=== PATIENT | female | born 1960 | race Caucasian/White ===

== ENCOUNTER 2016-11-24 07:53 | Emergency (ER) | payer MEDICAID ==
[~2016-11-24] VITALS: Ht 167.6 cm; Wt 77.1 kg
[~2016-11-24 07:53] MED LIST: ASPI81TA27 PO; Carisoprodol PO; GEMF600T3 PO; Gabapentin PO; LISI10TA6 PO; METF-370 PO; METH4PAK26 PO; NAP500T PO; NITR-39 PO; ONDA4TAB5 PO; RANI-226 PO
[2016-11-24 08:47] LABS: Basophils # (auto) 0 uL; Basophils % (auto) 0.2 % (0.0-2.0); DEFINITIVE VIEW TRANSMISSION; Eosinophils # (auto) 0.1 uL; Eosinophils % (auto) 2.6 % (0.0-7.0); Hematocrit 35.2 % (36.0-46.0); Hemoglobin 11.3 g/dL (12.2-16.2); Lymphocytes # (auto) 1.3 uL; Lymphocytes % (auto) 22.6 % (10.0-50.0); Mean Corpuscular Hemoglobin 23.8 pg (28.0-32.0); Mean Corpuscular Volume 74.3 fL (80.0-100.0); Mean Platelet Volume 8.3 fL (7.4-10.4); Monocytes # (auto) 0.5 uL; Monocytes % (auto) 8.2 % (0.0-12.0); Neutrophils # (auto) 3.7 uL; Neutrophils % (auto) 66.4 % (37.0-80.0); Platelet Count (auto) 330 10^3/uL (140-450); Red Cell Distribution Width 18.3 % (11.6-16.0); White Blood Cell 5.6 10^3/uL (4.4-10.8)
[2016-11-24 08:57] LABS: Anisocytosis Slight; Hypochromia Moderate; Microcytosis Moderate; Platelet Estimate Adequate
[2016-11-24 09:15] LABS: Albumin 3.8 g/dL (3.4-5.0); BUN/Creatinine Ratio 20.5; Bilirubin, Total 0.5 mg/dL (0.2-1.0); Potassium 3.6 mmol/L (3.5-5.1); Total Protein 7.5 g/dL (6.4-8.2)
[2016-11-24] MEDS ORDERED: SODIUM CHLORIDE 0.9% 1,000 ML IV ONE (09:37)
[2016-11-24] MEDS ORDERED: ONDANSETRON HCL 4 MG/2 ML VIAL IV ONE (09:45)
[2016-11-24 10:45] VITALS: BP 124/58
== END 2016-11-24 12:23 | disposition home or self-care (01) ==
LOC: EDBD 07:53 → ER 07:53 → EDUNIT# 07:53 → ER 12:23
DX: E86.0 Dehydration (principal); E11.9 Type 2 diabetes mellitus without complications; E78.5 Hyperlipidemia, unspecified; I10 Essential (primary) hypertension; R51 Headache; Z86.73 Personal history of transient ischemic attack (TIA), and cerebral infarction without residual deficits; Z79.899 Other long term (current) drug therapy; Z79.82 Long term (current) use of aspirin
CPT/HCPCS: 36415; 70450; 80053; 85025; 96361; 96374; 99285; J2405; J7030

== ENCOUNTER 2020-12-11 09:43 | Observation (INO) | payer BC, MEDICAID ==
[~2020-12-11] VITALS: Ht 162.6 cm; Wt 77.3 kg
[~2020-12-11 09:43] MED LIST changes: +ASPI-543 PO; -ASPI81TA27 PO; +GEMF-19 PO; -GEMF600T3 PO; +LISI-716 PO; -LISI10TA6 PO; +ONDA-144 PO; -ONDA4TAB5 PO
[2020-12-11 10:31] LABS: Basophils # (auto) 0 10 ^3/uL (0-0.2); Basophils % (auto) 0.4 % (0.0-2.0); Eosinophils # (auto) 0.1 10 ^3/uL (0-0.8); Lymphocytes # (auto) 1.4 10 ^3/uL (0.4-5.4); Monocytes # (auto) 0.4 10 ^3/uL (0-1.3); Monocytes % (auto) 6.1 % (0.0-12.0); Neutrophils # (auto) 4.2 10 ^3/uL (1.6-8.6)
[2020-12-11 10:32] LABS: Eosinophils % (auto) 1.3 % (0.0-7.0); Hemoglobin 12.4 g/dL (12.2-16.2); Mean Corpuscular Hemoglobin 24.2 pg (28.0-32.0); Mean Corpuscular Hgb Conc. 33.4 g/dL (32.0-36.0); Mean Corpuscular Volume 72.5 fL (80.0-100.0); Neutrophils % (auto) 69.2 % (37.0-80.0); Red Blood Cells 5.11 10^6/uL (4.0-5.20); Red Cell Distribution Width 17.8 % (11.8-14.3)
[2020-12-11 10:43] LABS: Albumin 3.3 g/dL (3.4-5.0); Anion Gap 18 (5-15); Blood Urea Nitrogen 15 mg/dL (7-18); Carbon Dioxide 18 mmol/L (21-32); Chloride 94 mmol/L (98-107); Potassium 4.4 mmol/L (3.5-5.1); Sodium 130 mmol/L (136-145)
[2020-12-11 10:49] LABS: Alanine Aminotransferase 36 U/L (13-56); Alkaline Phosphatase 106 U/L (45-117); Aspartate Aminotransferase 31 U/L (15-37); BUN/Creatinine Ratio 22.1; Bilirubin, Total 0.6 mg/dL (0.2-1.0); GFR African American 114 mL/min; GFR Non-African American 94 mL/min; Total Protein 7.7 g/dL (6.4-8.2)
[2020-12-11 10:54] LABS: Glucose 462 mg/dL (74-106)
[2020-12-11] MEDS ORDERED: SODIUM CHLORIDE 0.9% 1,000 ML IV ONE ×2 (11:30→16:30)
[2020-12-11 12:04] LABS: Urine Bacteria MOD /hpf (None Seen); Urine Blood Negative /uL (Negative); Urine Mucus FEW (None Seen); Urine Specific Gravity 1.031 (1.001-1.035); Urine WBC 23 /hpf (0 - 5)
[2020-12-11] MEDS ORDERED: ACETAMINOPHEN 500 MG TAB PO ONE (13:45)
[2020-12-11 14:10] LABS: INR 0.93 (0.9-1.15); Partial Thromboplastin Time 23.9 sec (23.0-31.2)
[2020-12-11] MEDS ORDERED: INSULIN LANTUS (GLARGINE) 1 /0.01ml (100units/ml) SC ONE (15:45)
[2020-12-11] MEDS ORDERED: cefTRIAXone 1GM/50ML D5W 50 ML IV ONE (16:00)
[2020-12-11] MEDS ORDERED: DEXTROSE (50%) 50ML SYRG IV PRN (16:30)
[2020-12-11] MEDS ORDERED: NITROGLYCERIN 0.4 MG SL TAB SL PRN (16:30)
[2020-12-11] MEDS ORDERED: hydrALAZINE HCL 20 MG/ML VL IV PRN (16:30)
[2020-12-11] MEDS ORDERED: MORPHINE SULFATE INJECTION 2 MG/ML SYRG IV PRN (16:30)
[2020-12-11] MEDS: ACCU-CHEK COMFORT CURVE STRIP VI SCH ×2 (17:00→22:14)
[2020-12-11 17:45] LABS: BUN/Creatinine Ratio 20.3; Calcium 8.3 mg/dL (8.5-10.1)
[2020-12-11] MEDS: InsuLIN REG 1unit/0.01ml Soln (100units/ml) SC SCH ×2 (18:18→22:41)
[2020-12-11] MEDS ORDERED: LORazepam 2MG/ML-1ML VIAL IV PRN (18:45)
[2020-12-11 19:00] VITALS: BP 150/73
[2020-12-11 19:51] LABS: Cholesterol 324 mg/dL (< 200)
[2020-12-11 19:53] LABS: HDL Cholesterol 43 mg/dL (40-59); Triglycerides 863 mg/dL (< 150)
[2020-12-11 22:00] VITALS: BP 150/73
[2020-12-11] MEDS ORDERED: ATORVASTATIN 20 MG TAB PO SCH (22:00)
[2020-12-11] MEDS ORDERED: HYDROcodone-ACET 5/325MG TAB PO PRN (22:15)
[2020-12-12] MEDS ORDERED: ATOR-47 PO (00:46)
[2020-12-12] MEDS ORDERED: HYDR-4795 PO (00:49)
[2020-12-12] MEDS ORDERED: LEVO50TA7 PO (00:49)
[2020-12-12] MEDS ORDERED: INSUINJ18 SC (00:55)
[2020-12-12] MEDS ORDERED: INSLANTI SC (00:55)
[2020-12-12] MEDS ORDERED: SEMA2INJ SC (00:55)
[2020-12-12 05:00] VITALS: BP 128/63
[2020-12-12] MEDS: InsuLIN REG 1unit/0.01ml Soln (100units/ml) SC SCH ×4 (06:27→21:38)
[2020-12-12] MEDS: ACCU-CHEK COMFORT CURVE STRIP VI SCH ×4 (06:28→21:52)
[2020-12-12 07:11] LABS: Basophils # (auto) 0 10 ^3/uL (0-0.2); Basophils % (auto) 0.8 % (0.0-2.0); Eosinophils # (auto) 0.1 10 ^3/uL (0-0.8)
[2020-12-12 07:13] LABS: Eosinophils % (auto) 2.5 % (0.0-7.0); Hematocrit 35.4 % (36.0-46.0); Hemoglobin 11.6 g/dL (12.2-16.2); Lymphocytes # (auto) 1.7 10 ^3/uL (0.4-5.4); Lymphocytes % (auto) 31.8 % (10.0-50.0); Mean Corpuscular Hemoglobin 24.2 pg (28.0-32.0); Mean Corpuscular Hgb Conc. 32.7 g/dL (32.0-36.0); Mean Corpuscular Volume 73.9 fL (80.0-100.0); Monocytes # (auto) 0.4 10 ^3/uL (0-1.3); Monocytes % (auto) 7.5 % (0.0-12.0); Neutrophils % (auto) 57.4 % (37.0-80.0); Red Blood Cells 4.79 10^6/uL (4.0-5.20); Red Cell Distribution Width 18.1 % (11.8-14.3); White Blood Cell 5.2 10^3/uL (4.4-10.8)
[2020-12-12 07:28] LABS: BUN/Creatinine Ratio 25.8; Calcium 8.8 mg/dL (8.5-10.1)
[2020-12-12 08:01] VITALS: BP 132/70
[2020-12-12 08:38] VITALS: BP 132/70
[2020-12-12] MEDS: ASPirin 81 mg TAB PO SCH (08:56)
[2020-12-12] MEDS: cefTRIAXone 1GM/50ML D5W 50 ML IV SCH (08:56)
[2020-12-12] MEDS ORDERED: HYDROcodone-ACET 7.5/325MG TAB PO PRN (09:15)
[2020-12-12] MEDS ORDERED: NAPROXEN 500 MG TAB PO PRN (09:15)
[2020-12-12] MEDS ORDERED: ACETAMINOPHEN 325 MG TAB PO PRN (09:15)
[2020-12-12] MEDS ORDERED: ONDANSETRON ODT 4 MG TAB PO PRN (09:15)
[2020-12-12] MEDS: CARISOPRODOL 350 MG TAB PO SCH ×2 (09:34→17:49)
[2020-12-12] MEDS: GEMFIBROZIL 600 MG TAB PO SCH (09:35)
[2020-12-12] MEDS: FAMOTIDINE 20 MG TAB PO SCH (09:35)
[2020-12-12] MEDS: metFORMIN HYDROCHLORIDE 500 MG TAB PO SCH ×2 (09:43→17:49)
[2020-12-12] MEDS ORDERED: LISINOPRIL 10 MG TAB PO SCH (10:00)
[2020-12-12] MEDS: GABAPENTIN 100 MG CAP PO SCH ×2 (12:19→21:36)
[2020-12-12 13:00] VITALS: BP 143/72
[2020-12-12 22:00] VITALS: BP 119/66
[2020-12-12] MEDS ORDERED: ATORVASTATIN 20 MG TAB PO SCH (22:00)
[2020-12-12] MEDS ORDERED: INSULIN LANTUS (GLARGINE) 1 /0.01ml (100units/ml) SC SCH (22:00)
[2020-12-13] MEDS: CARISOPRODOL 350 MG TAB PO SCH ×3 (00:59→17:07)
[2020-12-13 05:00] VITALS: BP 134/63
[2020-12-13 05:51] LABS: Basophils # (auto) 0 10 ^3/uL (0-0.2); Eosinophils # (auto) 0.2 10 ^3/uL (0-0.8); Monocytes # (auto) 0.4 10 ^3/uL (0-1.3); White Blood Cell 5.3 10^3/uL (4.4-10.8)
[2020-12-13 05:54] LABS: Basophils % (auto) 0.5 % (0.0-2.0); Eosinophils % (auto) 3.7 % (0.0-7.0); Hematocrit 33.9 % (36.0-46.0); Hemoglobin 11.3 g/dL (12.2-16.2); Lymphocytes # (auto) 1.9 10 ^3/uL (0.4-5.4); Lymphocytes % (auto) 36.4 % (10.0-50.0); Mean Corpuscular Hemoglobin 24.1 pg (28.0-32.0); Mean Corpuscular Hgb Conc. 33.2 g/dL (32.0-36.0); Mean Corpuscular Volume 72.8 fL (80.0-100.0); Monocytes % (auto) 7.1 % (0.0-12.0); Neutrophils # (auto) 2.8 10 ^3/uL (1.6-8.6); Neutrophils % (auto) 52.3 % (37.0-80.0); Red Blood Cells 4.66 10^6/uL (4.0-5.20); Red Cell Distribution Width 18.8 % (11.8-14.3)
[2020-12-13 06:14] LABS: Potassium 3.6 mmol/L (3.5-5.1)
[2020-12-13 06:18] LABS: BUN/Creatinine Ratio 32.7; Calcium 8.5 mg/dL (8.5-10.1)
[2020-12-13] MEDS: ACCU-CHEK COMFORT CURVE STRIP VI SCH ×3 (06:56→17:04)
[2020-12-13] MEDS: GABAPENTIN 100 MG CAP PO SCH ×2 (06:56→16:19)
[2020-12-13] MEDS ORDERED: LEVOTHYROXINE SODIUM 50 MCG TAB PO SCH (07:00)
[2020-12-13] MEDS: InsuLIN REG 1unit/0.01ml Soln (100units/ml) SC SCH ×3 (07:02→17:06)
[2020-12-13] MEDS: metFORMIN HYDROCHLORIDE 500 MG TAB PO SCH ×2 (08:36→17:05)
[2020-12-13 09:00] VITALS: BP 133/75
[2020-12-13] MEDS ORDERED: LORazepam 2MG/ML-1ML VIAL IV ONE (09:30)
[2020-12-13] MEDS: ASPirin 81 mg TAB PO SCH (10:17)
[2020-12-13] MEDS: FAMOTIDINE 20 MG TAB PO SCH (10:18)
[2020-12-13] MEDS: GEMFIBROZIL 600 MG TAB PO SCH (10:18)
[2020-12-13] MEDS: cefTRIAXone 1GM/50ML D5W 50 ML IV SCH (10:19)
[2020-12-13 13:00] VITALS: BP 128/70
[2020-12-13 16:54] VITALS: BP 124/69
[2020-12-13] MEDS ORDERED: APIXABAN 5 MG TAB PO SCH (22:00)
== END 2020-12-13 17:39 ==
LOC: EDBD 09:43 → ER 09:43 → TELE 16:25 → INTOOBSV 16:25 → TELE-WESTW 18:32
PROVIDERS: ADMIT Internal Medicine; ATTEND Internal Medicine
DX: R07.89 Other chest pain (principal); Z20.822 Contact with and (suspected) exposure to COVID-19; I63.9 Cerebral infarction, unspecified; I69.351 Hemiplegia and hemiparesis following cerebral infarction affecting right dominant side; E11.65 Type 2 diabetes mellitus with hyperglycemia; I48.91 Unspecified atrial fibrillation; I10 Essential (primary) hypertension; N39.0 Urinary tract infection, site not specified; D84.9 Immunodeficiency, unspecified; E78.5 Hyperlipidemia, unspecified; G47.9 Sleep disorder, unspecified; Z79.82 Long term (current) use of aspirin; Z90.710 Acquired absence of both cervix and uterus; Z79.899 Other long term (current) drug therapy
CPT/HCPCS: 36415; 70450; 70551; 71045; 80048; 80053; 80061; 81001; 82962; 83036; 83735; 84443; 84484; 85025; 85049; 85610; 85730; 87040; 87086; 87088; 87186; 87426; 93005; 93306; 93886; 96361; 96365; 96366; 96372; 96375; 97163; 97530; 99285; G0378; J0696; J1815; J2060; J7030